=== PATIENT | female | born 1950 | race Caucasian/White ===

== ENCOUNTER 2019-04-13 07:03 | Outpatient (CLI) | payer OTHER, SELFPAY ==
[2019-04-13 09:04] LABS: TSH 0.66 uIU/mL (0.358-3.74)
== END 2019-04-13 07:23 ==
PROVIDERS: PCP Family Medicine; Visit Provider Preventive Medicine Undersea and Hyperbaric Medicine
DX: C07 Malignant neoplasm of parotid gland (principal)
CPT/HCPCS: 36415; 84443